=== PATIENT | male | born 1955 | race African-American/Black ===

== ENCOUNTER → 2017-07-31 | Day surgery (SDC) | payer MEDICARE ==
[~2017-07-31] MED LIST: AMLODIPINE10 MG PO; NORVASC PO; TRAMADOL HYDROC50 MG PO
[2017-07-31 06:30] LABS: BARBITURATES NEGATIVE (NEGATIVE); COCAINE POSITIVE (NEGATIVE); METHADONE NEGATIVE (NEGATIVE); OXCYCODONE NEGATIVE (NEGATIVE); TETRAHYDROCANNABIONOL POSITIVE (NEGATIVE); TRICYLIC ANTIDEPRESSANTS NEGATIVE (NEGATIVE)
[2017-07-31 08:24] VITALS: BP 118/61
== END | disposition home or self-care (01) ==
LOC: ORM 05:38
PROVIDERS: ATTEND Podiatrist Foot & Ankle Surgery
DX: M79.671 Pain in right foot (principal); M25.474 Effusion, right foot; F14.90 Cocaine use, unspecified, uncomplicated; Z53.09 Procedure and treatment not carried out because of other contraindication

== ENCOUNTER 2018-10-08 10:12 | Emergency (ER) | payer MEDICARE ==
[~2018-10-08] VITALS: Ht 170.2 cm; Wt 70.0 kg
[2018-10-08] MEDS ORDERED: GABAPENTIN100 MG PO (10:35)
[2018-10-08] MEDS ORDERED: ZITHROMAX250 MG PO (11:40)
[2018-10-08] MEDS ORDERED: MEDDOSEPAK PO (11:40)
[2018-10-08 12:06] VITALS: BP 135/85
== END 2018-10-08 12:06 | disposition home or self-care (01) ==
LOC: ED 10:12
DX: J40 Bronchitis, not specified as acute or chronic (principal); F17.200 Nicotine dependence, unspecified, uncomplicated; J44.9 Chronic obstructive pulmonary disease, unspecified; R05 Cough

== ENCOUNTER 2019-03-13 08:07 | Emergency (ER) | payer MEDICARE ==
[~2019-03-13] VITALS: Ht 170.2 cm; Wt 58.2 kg
[~2019-03-13 08:07] MED LIST changes: +GABAPENTIN100 MG PO; +MEDDOSEPAK PO; +ZITHROMAX250 MG PO
[2019-03-13 10:35] VITALS: BP 129/74
== END 2019-03-13 10:35 | disposition home or self-care (01) ==
LOC: ED 08:07
DX: S76.012A Strain of muscle, fascia and tendon of left hip, initial encounter (principal); S70.02XA Contusion of left hip, initial encounter; I10 Essential (primary) hypertension; F17.210 Nicotine dependence, cigarettes, uncomplicated; V18.1XXA Pedal cycle passenger injured in noncollision transport accident in nontraffic accident, initial encounter; Y93.55 Activity, bike riding; Y92.410 Unspecified street and highway as the place of occurrence of the external cause

== ENCOUNTER 2020-05-05 17:17 | Emergency (ER) | payer MEDICARE ==
[~2020-05-05] VITALS: Ht 170.2 cm; Wt 59.1 kg
[~2020-05-05 17:17] MED LIST changes: +AMLODIPINE BESY10 MG PO; -AMLODIPINE10 MG PO
[2020-05-05] MEDS ORDERED: NEURONTIN300 MG PO (17:27)
[2020-05-05 18:30] VITALS: BP 151/79
== END 2020-05-05 18:30 | disposition home or self-care (01) ==
LOC: ED 17:17
DX: M21.331 Wrist drop, right wrist (principal); I10 Essential (primary) hypertension; G62.9 Polyneuropathy, unspecified; F17.200 Nicotine dependence, unspecified, uncomplicated

== ENCOUNTER 2021-12-22 13:07 | Emergency (ER) | payer MEDICARE, MEDICAID ==
[~2021-12-22] VITALS: Ht 170.2 cm; Wt 58.0 kg
[~2021-12-22 13:07] MED LIST changes: +NEURONTIN300 MG PO
[2021-12-22 15:03] LABS: HEMATOCRIT 34.8 % (39.0-50.0); MEAN CELL VOLUME 89.2 fL CALC (80.0-100.0); MEAN CORPUSCULAR HGB 29.5 pG CALC (26.0-32.0); NEUT# 4.17 thou/uL (1.82-7.42); RED BLOOD COUNT 3.9 mill/uL (4.70-6.10); RED CELL DISTRI WIDTH 17.6 % (11.5-15.5)
[2021-12-22 15:08] LABS: HEMOGLOBIN 11.5 g/dl (14.0-18.0)
[2021-12-22 15:13] LABS: ALBUMIN 3.9 g/dL (3.2-5.0); ALKALINE PHOSPHATASE 78 u/l (38-126); ANION GAP 12 (6-22 (CALC)); BUN 13 mg/dL (8-23); BUN/CREATININE RATIO 15 (12-20 (CALC)); CARBON DIOXIDE 26 mmol/l (22-30); CHLORIDE 106 mmol/l (95-108); CREATININE 0.9 mg/dL (0.7-1.3); GFR > 60 ML/MIN (>=60 (CALC)); GFR FOR AFR.AMER. > 60 ML/MIN (>=60 (CALC)); POTASSIUM 3.5 mmol/l (3.5-5.1); SGOT/AST 25 u/l (19-48); SODIUM 141 mmol/l (137-146); TOTAL PROTEIN 7.3 g/dL (6.3-8.2)
[2021-12-22 15:18] LABS: BILIRUBIN, TOTAL 0.3 mg/dL (0.0-1.4)
[2021-12-22] MEDS ORDERED: MIRALAX17 GM PO (17:03)
[2021-12-22] MEDS ORDERED: CITRATE OF MEGNESIA PO (17:03)
[2021-12-22 17:52] VITALS: BP 138/82
== END 2021-12-22 17:56 | disposition home or self-care (01) ==
LOC: ED 13:07
PROVIDERS: Family Medicine
DX: K59.00 Constipation, unspecified (principal); I10 Essential (primary) hypertension; G62.9 Polyneuropathy, unspecified; F17.210 Nicotine dependence, cigarettes, uncomplicated

== ENCOUNTER 2022-03-27 09:54 | Emergency (ER) | payer MEDICARE, MEDICAID ==
[~2022-03-27] VITALS: Ht 170.2 cm; Wt 55.0 kg
[2022-03-27] VITALS (7 sets, daily range): BP systolic 78–129; BP diastolic 32–85
[~2022-03-27 09:54] MED LIST changes: +CITRATE OF MEGNESIA PO; +MIRALAX17 GM PO
== END 2022-03-27 12:28 | disposition home or self-care (01) ==
LOC: ED 09:54
DX: K59.00 Constipation, unspecified (principal); I10 Essential (primary) hypertension; G62.9 Polyneuropathy, unspecified; F17.200 Nicotine dependence, unspecified, uncomplicated

== ENCOUNTER 2022-04-04 11:17 | Emergency (ER) | payer MEDICARE, MEDICAID ==
[~2022-04-04] VITALS: Ht 170.2 cm; Wt 60.0 kg
[2022-04-04 11:21] VITALS: BP 130/9
[2022-04-04 12:56] LABS: HEMATOCRIT 35.6 % (39.0-50.0); HEMOGLOBIN 11.9 g/dl (14.0-18.0); IMMATURE GRANULOCYTES 0.3 % (0.0-5.0); MEAN CELL VOLUME 88.3 fL CALC (80.0-100.0); MEAN CORPUSCULAR HGB 29.5 pG CALC (26.0-32.0); MEAN CORPUSCULAR HGB CONC 33.4 g/dL CAL (32.0-36.0); NEUT# 8.72 thou/uL (1.82-7.42); RED BLOOD COUNT 4.03 mill/uL (4.70-6.10); RED CELL DISTRI WIDTH 14.7 % (11.5-15.5)
[2022-04-04 13:08] LABS: ALKALINE PHOSPHATASE 81 u/l (38-126); ANION GAP 13 (6-22 (CALC)); BUN 11 mg/dL (8-23); BUN/CREATININE RATIO 13 (12-20 (CALC)); CARBON DIOXIDE 23 mmol/l (22-30); CHLORIDE 107 mmol/l (95-108); CREATININE 0.9 mg/dL (0.7-1.3); GFR FOR AFR.AMER. > 60 ML/MIN (>=60 (CALC)); GFR OTHER RACES > 60 ML/MIN (>=60 (CALC)); POTASSIUM 3.7 mmol/l (3.5-5.1); SGOT/AST 33 u/l (19-48); SODIUM 139 mmol/l (137-146)
[2022-04-04 13:10] LABS: INTERNATIONAL NORMALIZED RATIO 0.9 RATIO (0.7-1.3); PROTHROMBIN TIME 9.8 SECONDS (9.0-12.5)
[2022-04-04 13:14] LABS: BILIRUBIN, TOTAL 0.7 mg/dL (0.0-1.4)
== END 2022-04-04 15:13 | disposition short-term general hospital (02) ==
LOC: ED 11:17
PROVIDERS: Nurse Practitioner
DX: S72.011A Unspecified intracapsular fracture of right femur, initial encounter for closed fracture (principal); I10 Essential (primary) hypertension; G62.9 Polyneuropathy, unspecified; F17.210 Nicotine dependence, cigarettes, uncomplicated; W01.0XXA Fall on same level from slipping, tripping and stumbling without subsequent striking against object, initial encounter; Y93.89 Activity, other specified; Y92.009 Unspecified place in unspecified non-institutional (private) residence as the place of occurrence of the external cause

== ENCOUNTER 2022-09-15 14:00 | Emergency (ER) | payer MEDICARE, MEDICAID ==
[~2022-09-15] VITALS: Ht 170.2 cm; Wt 59.1 kg
[2022-09-15] MEDS ORDERED: TRAMADOL HCL50 MG PO (14:45)
[2022-09-15 16:09] VITALS: BP 138/86
== END 2022-09-15 16:10 | disposition home or self-care (01) ==
LOC: ED 14:00
DX: M25.551 Pain in right hip (principal); I10 Essential (primary) hypertension; G62.9 Polyneuropathy, unspecified; F17.210 Nicotine dependence, cigarettes, uncomplicated; Z96.641 Presence of right artificial hip joint